=== PATIENT | male | born 1990 | race Caucasian/White ===

== ENCOUNTER 2017-03-07 13:38 | Day surgery (SDC) | payer OTHER ==
[2017-03-07] MEDS ORDERED: LR 1,000 ML IV ONE (14:50)
[2017-03-07] MEDS ORDERED: ceFAZolin 2 GM/DEXTROSE 100 ML IV ONE (15:14)
[2017-03-07] MEDS ORDERED: BUPIVACAINE/EPI 0.5% 30 ML SDV ONE (15:36)
--- NOTE | 2017-03-07 17:29 | PDANEPAE ---
ANE History of Present Illness perirectal abscess ANE Past Medical History - Cardiovascular History Hx Hypertension: No Hx Arrhythmias: No Hx Chest Pain: No Hx Coronary Artery / Peripheral Vascular Disease: No Hx CHF / Valvular Disease: No Hx Palpitations: No - Pulmonary History Hx COPD: No Hx Asthma/Reactive Airway Disease: No Hx Recent Upper Respiratory Infection: No Hx Oxygen in Use at Home: No Hx Sleep Apnea: No Sleep Apnea Screening Result - Last Documented: Negative - Neurologic History Hx Cerebrovascular Accident: No Hx Seizures: No Hx Dementia: No - Endocrine History Hx Diabetes: No - Renal History Hx Renal Disorders: No - Liver History Hx Hepatic Disorders: No - Neurological & Psychiatric Hx Hx Neurological and Psychiatric Disorders: No - Cancer History Hx Cancer: No - Congenital Disorder History Hx Congenital Disorders: No - GI History Hx Gastrointestinal Disorders: No - Chronic Pain History Chronic Pain: No - Surgical History Prior Surgeries: fistule removal 08/2016 ANE Review of Systems Review of systems is: negative - Exercise capacity Exercise capacity: >=4 METS METS (RN): 5 METS ANE Patient History - Allergies Allergies/Adverse Reactions: No Allergies [NKA] Allergy (Verified 03/07/17 14:49) - Home Medications Home Medications: NK [No Known Home Meds] 03/07/17 [Last Taken Unknown] - NPO status NPO Status: no food or drink >8 hours NPO Since - Liquids (Date): 03/07/17 NPO Since - Liquids (Time): 09:00 NPO Since - Solids (Date): 03/07/17 NPO Since - Solids (Time): 09:00 - Anes Hx Anes Hx: no prior problems - Smoking Hx Smoking Status: Never smoked - Alcohol Use Alcohol Use: Occasionally - Family Anes Hx Family Anes Hx: none Family Hx Anesthesia Complications: n/a ANE Labs/Vital Signs - Vital Signs Blood Pressure: 122/85 Heart Rate: 68 Respiratory Rate: 18 O2 Sat (%): 95 Height: 185.42 cm Weight: 70.307 kg ANE Physical Exam - Airway Mallampati Score: Class 1 Mouth exam: normal dental/mouth exam - Pulmonary Pulmonary: no respiratory distress - Cardiovascular Cardiovascular: regular rate and rhythym - ASA Status ASA Status: I ANE Anesthesia Plan Anesthesia Plan: general endotracheal anesthesia
[2017-03-07] MEDS ORDERED: MIDAZOLAM 2 MG/2 ML VIAL IVP ONE (17:30)
[2017-03-07] MEDS ORDERED: fentaNYL 100 MCG/2 ML INJ ONE ×2 (17:36→18:16)
[2017-03-07] MEDS ORDERED: PROPOFOL 200 MG/20 ML VIAL ONE (17:36)
[2017-03-07] MEDS ORDERED: DEXAMETHASONE 4 MG/ML VIAL ONE (18:11)
[2017-03-07] MEDS ORDERED: KETOROLAC 30 MG/1 ML SDV ONE (18:11)
[2017-03-07] MEDS ORDERED: ONDANSETRON 4 MG/2 ML VIAL ONE (18:11)
[2017-03-07] MEDS ORDERED: ACETAMINOPHEN 500 MG TAB PO PRN (18:31)
[2017-03-07] MEDS ORDERED: NALOXONE HCL 0.4 MG/ML INJ IVP PRN (18:31)
[2017-03-07] MEDS ORDERED: fentaNYL 100 MCG/2 ML INJ IVP PRN ×2 (18:31)
[2017-03-07] MEDS ORDERED: ONDANSETRON 4 MG/2 ML VIAL IVP PRN (18:31)
[2017-03-07] MEDS ORDERED: ALBUTEROL 3 ML DEYVIAL IH PRN (18:31)
[2017-03-07] MEDS ORDERED: HYDROmorphONE/DILAUDID 1 MG/ML SYR IVP PRN ×2 (18:31)
[2017-03-07] MEDS ORDERED: HYDROCODONE/APAP 5/325 TAB PO PRN (18:31)
[2017-03-07] MEDS ORDERED: OXYCODONE/APAP 5/325 TAB PO PRN (18:31)
[2017-03-07] MEDS ORDERED: PROMETHAZINE HCL 25 MG/ML INJ IVP PRN (18:31)
[2017-03-07] MEDS ORDERED: MEPERIDINE 25 MG/ML SYR IVP PRN (18:31)
--- NOTE | 2017-03-07 18:35 | POSTANESTH ---
Post Anesthetic Evaluation Cardiovascular Status: Normal, Stable Respiratory Status: Normal, Stable Level of Consciousness/Mental Status: Can Participate in Eval Pain Control: Adequate, Prn Tx Ordered Nausea/Vomiting Control: Adequate, Prn Tx Ordered Complications Possibly Related to Anesthesia: None Noted
--- NOTE | 2017-03-07 18:36 | POSTOPPROG ---
Post Op Note Date of Operation: 03/07/17 Surgeon: Rony Guy Anesthesiologist: PRADEEP Anesthesia: GET(General Endotracheal) Pre-op Diagnosis: RECURRENT PERIRECTAL ABSCESS Post-op Diagnosis: SAME Indication: PAIN Procedure: EUA/ I&D RECURRENT PERIRECTAL ABSCESS Findings: SMALL ABSCESS/ NO FISTULA Inf/Abcess present in the surg proc area at time of surgery?: Yes Depth: Deep Incisional (Fascial) EBL: Minimal Complications: 0 Specimen(s): CULTURE
--- NOTE | 2017-03-07 19:07 | GHP ---
[f rep st] PREOP HISTORY AND PHYSICAL DATE OF ADMISSION: 03/07/2017 CHIEF COMPLAINT: Perirectal pain and pressure. HISTORY OF PRESENT ILLNESS: The patient is a 27-year-old male who was following up for pain and pre ssure at his previous surgery site where he underwent EUA with fistulotomy on September 04, 2016. The patient was seen in the office yesterday and was asked to follow up today in the office again, as h e stated his pain had improved. Today, the patient states that he feels a little worse than he did yesterday. He denies any fever or drainage from the surgery site. He was not started on any antibi otics. He last ate a meal at 9:00 a.m. this morning. REVIEW OF SYSTEMS: A 10-point review of systems is negative except for as noted above in the HPI. PHYSICAL EXAMINATION: GENERAL: Well-groomed, pleasant, nontoxic-appearing male. SKIN: Warm and d ry. HEENT: Normocephalic. Pupils equal and round. RESPIRATORY: Negative for increased work of b reathing. EXTREMITIES: Adequate peripheral perfusion. No peripheral edema. MUSCULOSKELETAL: Amb ulates well independently. Normal gait. NEUROLOGIC: Alert and oriented x4. PSYCHIATRIC: Mood an d affect are normal. COLORECTAL: Digital exam reveals moderate diffuse tenderness. Anoscopy revea ls moderate tenderness and possibly some fluctuance at the anterior aspect of the anorectal junction . PAST MEDICAL HISTORY: 1. Anal fistula. 2. Perirectal abscess. PAST SURGICAL HISTORY: EUA with anal fistulotomy. MEDICATIONS: None. ALLERGIES: No known allergies. ASSESSMENT: Rectal pain. PLAN: The patient was advised that since his pain and fluctuance are a little worse than yesterday, it is believed that the scar tissue from his previous surgery is hiding a perirectal abscess. I di d not see any drainage today, but I think we should try to perform an EUA, possibly with incision an d drainage. We basically discussed the course of the procedure, and the patient expressed his wish to proceed with scheduling the procedure for this evening. /[id number]/MODL
[2017-03-07 19:48] VITALS: BP 122/76; PULSE 72; RESP 16; TEMP 97.9; O2SAT 98
== END 2017-03-07 19:51 | disposition home or self-care (01) ==
LOC: FSGY 13:38
PROVIDERS: ATTEND Surgery
PROC: 0D9P0ZZ Drainage of Rectum, Open Approach (ICD-10-PCS; principal; 2017-03-07 15:00)
DX: K61.1 Rectal abscess (principal)
CPT/HCPCS: J0690; J1100; J1885; J2250; J2405; J2704; J3010